=== PATIENT | female | born 1990 | race Asian ===

== ENCOUNTER 2017-06-06 02:06 | Outpatient (CLI) | payer OTHER | END 2017-06-06 02:21 | disposition short-term general hospital (02) | LOC: AMB 02:06 | DX: R51 Headache (principal); M54.2 Cervicalgia; M54.89 Other dorsalgia; M79.605 Pain in left leg; V49.88XA Car occupant (driver) (passenger) injured in other specified transport accidents, initial encounter; Y92.488 Other paved roadways as the place of occurrence of the external cause | CPT/HCPCS: A0425; A0429 ==